=== PATIENT | male | born 1980 | race Caucasian/White ===

== ENCOUNTER 2016-09-06 15:25 | Emergency (ER) | payer OTHER ==
[2016-09-06 15:31] VITALS: BP 134/77
[2016-09-06] MEDS ORDERED: OXYCODONE HCL IR 5 MG TABLET PO ONE (16:09)
--- NOTE | 2016-09-06 16:18 | ER Document Report ---
HPI - HPI Pain Level: 4 Notes: Patient is a 36-year-old male who presents the ED with any of right lateral ankle pain status post jumping off a boat today and landing on. Patient states that he does have pain with ambulation. He has noticed some swelling to his lateral malleolus as well. He has not had any medications for symptoms. The pain is described as mild. The pain does not radiate. He still eating and drink without any problems. Denies any fever, URI, sore throat, chest pain, palpitations, syncope, cough, wheeze, shortness of breath, abdominal pain, nausea/vomiting, muscle weakness/paralysis, numbness or tingling, or rash. - ROS Notes: REVIEW OF SYSTEMS: CONSTITUTIONAL : Denies fever, chills, or sweats. Denies recent illness. EENT: Denies eye, ear, throat, or mouth pain or symptoms. Denies nasal or sinus congestion or discharge. Denies throat, tongue, or mouth swelling or difficulty swallowing. CARDIOVASCULAR: Denies chest pain. Denies palpitations or racing or irregular heart beat. Denies ankle edema. RESPIRATORY: Denies cough, cold, or chest congestion. Denies shortness of breath, difficulty breathing, or wheezing. GASTROINTESTINAL: Denies abdominal pain or distention. Denies nausea, vomiting , or diarrhea. Denies blood in vomitus, stools, or per rectum. Denies black, tarry stools. Denies constipation. MUSCULOSKELETAL: see hpi SKIN: Denies rash, lesions or sores. NEUROLOGICAL: Denies confusion or altered mental status. Denies passing out or loss of consciousness. Denies dizziness or lightheadedness. Denies headache. Denies weakness or paralysis or loss of use of either side. Denies problems with gait or speech. Denies sensory loss, numbness, or tingling. Denies seizures. ALL OTHER SYSTEMS REVIEWED AND NEGATIVE. Dictation was performed using [employer] voice recognition software - DERM Skin Color: Normal Past Medical History - Social History Smoking Status: Unknown if Ever Smoked Family History: Reviewed & Not Pertinent Patient has suicidal ideation: No Patient has homicidal ideation: No Renal/ Medical History: Denies: Hx Peritoneal Dialysis Vertical Provider Document - INFECTION CONTROL TRAVEL OUTSIDE OF THE [place] IN LAST 30 DAYS: No - HEENT Notes: PHYSICAL EXAMINATION: GENERAL: Well-appearing, well-nourished and in no acute distress. LUNGS: Breath sounds clear to auscultation bilaterally and equal. No wheezes rales or rhonchi. HEART: Regular rate and rhythm without murmurs, rubs, gallops. Musculoskeletal: FROM to passive/active inversion, dorsi/plantar flexion. LROM to eversion. Strength 5+/5. + inflammation noted to the lateral ankle. + tenderness to palp of the lateral malleolus. N/V intact distal. Extremities: No cyanosis, clubbing, or edema b/l. Peripheral pulses 2+. Capillary refill less than 3 seconds. NEUROLOGICAL: Normal sensory, motor exams PSYCH: Normal mood, normal affect. SKIN: Warm, Dry, normal turgor, no rashes or lesions noted. - RESPIRATORY O2 Sat by Pulse Oximetry: 95 Course - Re-evaluation Re-evalutation: 09/06/16 16:54 Afebrile, well-hydrated, 36-year-old male presents to the ED with a right lateral malleolar (fibular) fracture without significant displacement. No other fractures were noted in the ankle per the radiologist. Patient declined pain medication. Vitals are stable. Posterior leg splint applied today along with crutches. Patient is to be non-weight bearing until evaluation with either orthopedics or podiatry. Conservative measures otherwise for symptoms. Recheck with PCM as well in the next week. Return to the ED with any worsening/ concerning symptoms as reviewed in discharge. Patient in agreement. - Vital Signs Vital signs: Temp Pulse Resp BP Pulse Ox 98.3 F 66 16 134/77 H 95 09/06/16 15:30 09/06/16 15:30 09/06/16 15:30 09/06/16 15:30 09/06/16 15:30 Procedures - Immobilization Right Leg Time completed: 17:10 Pre-Proc Neuro Vasc Exam: Normal Immobilizer type: Other - Posterior Leg Performed by: PCT Post-Proc Neuro Vasc Exam: Normal Discharge - Discharge Clinical Impression: Right fibular fracture Qualifiers: Encounter type: initial encounter Fibula location: lateral malleolus Fracture type: closed Fracture alignment: nondisplaced Qualified Code(s): S82.64XA - Nondisplaced fracture of lateral malleolus of right fibula, initial encounter for closed fracture Condition: Stable Disposition: HOME, SELF-CARE Additional Instructions: Rest, Ice, Compression, Elevation Use splint as directed along with crutches and avoid weight-bearing. Tylenol/ibuprofen as needed Light stretches daily Strength exercises as able Moist heat and massage may help F/u with your Orthopedics in 2-3 days F/u with your PCM this week as well. Return to the ED with any chest pain, trouble breathing, shortness of breath, worsening pain, swelling, numbness/tingling, muscle weakness, foot drop, development of fever, or any other worsening/concerning symptoms as needed. Referrals: [facility] ([facility]) [Provider Group] - Follow up as needed
--- NOTE | 2016-09-06 16:28 | RADIOLOGY REPORT (SQ) ---
EXAM DESCRIPTION: ANKLE RIGHT COMPLETE COMPLETED DATE/TIME: 09/06/2016 4:07 pm REASON FOR STUDY: pain status post injury COMPARISON: None. NUMBER OF VIEWS: Three views. TECHNIQUE: AP, lateral, and oblique radiographic images acquired of the right ankle. LIMITATIONS: None. FINDINGS: MINERALIZATION: Normal. BONES: Obliquely oriented Chavira B/A fracture of the distal fibula there is no significant displacemen t of the fracture fragments. There is soft tissue swelling about the ankle worse in the lateral aspe ct and in the medial aspect. No other fractures identified. Degenerative osteophyte noted off the t alus. JOINTS: Small ankle joint effusion. SOFT TISSUES: Soft tissue swelling about the ankle. No radiopaque foreign body. OTHER: No other significant finding. IMPRESSION: Obliquely oriented fracture involving the distal fibula (Chavira A/B) without significant displacement of the fracture fragments. There is soft tissue swelling about the ankle, lateral great er than medial. No radiopaque foreign body. No other fractures identified. TECHNICAL DOCUMENTATION: JOB ID: [id number] [employer]- All Rights Reserved
== END 2016-09-06 17:45 | disposition home or self-care (01) ==
LOC: ER 15:25
PROC: 2W3QX1Z Immobilization of Right Lower Leg using Splint (ICD-10-PCS; principal; 2016-09-06)
DX: S82.64XA Nondisplaced fracture of lateral malleolus of right fibula, initial encounter for closed fracture (principal); M25.571 Pain in right ankle and joints of right foot; X50.1XXA Overexertion from prolonged static or awkward postures, initial encounter; Y93.39 Activity, other involving climbing, rappelling and jumping off
CPT/HCPCS: 99283